=== PATIENT | female | born 1935 | race African-American/Black ===

== ENCOUNTER 2017-08-17 00:19 | Inpatient (IN) | payer MEDICARE ==
[~2017-08-17] VITALS: Ht 172.7 cm; Wt 78.9 kg
--- NOTE | ~2017-08-17 | OP ---
PATIENT NAME: EDDIE AVILA MEDICAL RECORD: [id number] :35 LOCATION:[id number] ADMISSION DATE:08/17/17 SURGEON: ADELINA GUZMAN MD DATE OF OPERATION: 08/18/2017 PREOPERATIVE DIAGNOSES: 1. Need for IV access. 2. Nausea and vomiting. 3. Gallstones. 4. Anemia of chronic disease. 5. Cardiac arrhythmia. 6. Bmqsc-ym-kgptcvz renal failure. POSTOPERATIVE DIAGNOSES: 1. Need for IV access. 2. Nausea and vomiting. 3. Gallstones. 4. Anemia of chronic disease. 5. Cardiac arrhythmia. 6. Jvhsc-oz-nsaztyo renal failure. PROCEDURE: Right subclavian vein triple-lumen central venous line placement. SURGEON: Adelina Guzman MD REPORT OF PROCEDURE: The patient's right chest was prepped and draped in sterile fashion. A 5 mL of 1% lidocaine was infused into the subcutaneous tissues. A needle was used to cannulate the right subclavian vein and a guidewire was advanced with ease. Over this wire, a dilator was placed followed by the triple lumen catheter. The catheter aspirated nonpulsatile dark blood and flushed easily in all 3 ports. This was sutured into place with 3-0 silk ties and dressed appropriately. COMPLICATIONS: None. CONDITION: Stable. ANESTHESIA: Local. BLOOD LOSS: Minimal. TRANSINT:[id number] Voice Confirmation ID: [id number] DOCUMENT ID: [id number] ADELINA GUZMAN MD at 1319 CC: [id number] DICTATION DATE: 08/18/17 1148 MANUFACTURERS AGENT: 08/18/17 1523 ADM IN [place] [id number] [place] [id number]
[2017-08-17 05:25] VITALS: BP 143/93
[2017-08-17 08:07] VITALS: BP 176/76
[2017-08-17 09:24] LABS: BASOPHILS 0.2 % (0-2); EOSINOPHILS 1.3 % (0-7); HEMATOCRIT 30.5 % (36.0-48.0); HEMOGLOBIN 9.3 g/dL (12-16); IMMATURE GRANULOCYTES 0.2 % (0-5); LYMPHOCYTES 26.1 % (15-50); MCH 27.5 pg (26.0-34.0); MCHC 30.5 g/dL (31.0-37.0); MCV 90.2 fL (80.0-100.0); MEAN PLATELET VOLUME 11.2 fL (7.4-10.4); MONOCYTES 8.8 % (2-11); NEUTROPHILS 63.4 % (40-80); PLATELET COUNT 159 10x3/uL (130-400); RBC 3.38 10x6/uL (4.00-5.40); RDW 15.7 % (11.5-14.5); WBC 6.1 10x3/uL (4.8-10.8)
[2017-08-17 09:30] LABS: ANION GAP 14.1 mmol/L (8-16); CALCIUM 9.1 mg/dL (8.5-10.1); CARBON DIOXIDE 22.1 mmol/L (21.0-32.0); CREATININE - SERUM 1.3 mg/dL (0.6-1.3); POTASSIUM - SERUM 3.2 mmol/L (3.5-5.1)
[2017-08-17 12:05] VITALS: BMI 26.4
[2017-08-17 12:15] VITALS: BP 187/90
[2017-08-17 14:15] VITALS: Ht 172.7 cm; Wt 78.9 kg
[2017-08-17 16:24] VITALS: BP 187/75
[2017-08-17 20:00] VITALS: BP 174/77
[2017-08-18] VITALS: BP 189/83
[2017-08-18 04:00] VITALS: BP 191/85
[2017-08-18 08:18] VITALS: BP 180/88
[2017-08-18 12:42] VITALS: BP 188/91
[2017-08-18 14:10] LABS: CREATININE - SERUM 1.4 mg/dL (0.6-1.3)
[2017-08-18 21:31] VITALS: BP 188/81
[2017-08-19 00:50] VITALS: BP 176/84
[2017-08-19 05:08] LABS: BASOPHILS 0.2 % (0-2); EOSINOPHILS 2.6 % (0-7); HEMATOCRIT 27.1 % (36.0-48.0); HEMOGLOBIN 8.2 g/dL (12-16); IMMATURE GRANULOCYTES 0.2 % (0-5); LYMPHOCYTES 31.7 % (15-50); MCH 27.2 pg (26.0-34.0); MCHC 30.3 g/dL (31.0-37.0); MCV 89.7 fL (80.0-100.0); MEAN PLATELET VOLUME 10.8 fL (7.4-10.4); MONOCYTES 11.5 % (2-11); NEUTROPHILS 53.8 % (40-80); PLATELET COUNT 139 10x3/uL (130-400); RBC 3.02 10x6/uL (4.00-5.40); RDW 15.5 % (11.5-14.5)
[2017-08-19 05:10] LABS: WBC 4.2 10x3/uL (4.8-10.8)
[2017-08-19 05:24] LABS: ANION GAP 10.5 mmol/L (8-16); CALCIUM 8.9 mg/dL (8.5-10.1); CARBON DIOXIDE 24.2 mmol/L (21.0-32.0); CREATININE - SERUM 1.3 mg/dL (0.6-1.3)
[2017-08-19 05:33] LABS: POTASSIUM - SERUM 3.7 mmol/L (3.5-5.1)
[2017-08-19 05:43] VITALS: BP 178/84
[2017-08-19 09:59] VITALS: BP 179/70
[2017-08-19 11:55] VITALS: BP 196/93
[2017-08-19 16:48] VITALS: BP 164/74
[2017-08-19 20:00] VITALS: BP 144/64
[2017-08-20 04:00] VITALS: BP 158/71
[2017-08-20 06:19] LABS: BASOPHILS 0.2 % (0-2); HEMATOCRIT 26.4 % (36.0-48.0); HEMOGLOBIN 8.3 g/dL (12-16); IMMATURE GRANULOCYTES 0.2 % (0-5); LYMPHOCYTES 36.2 % (15-50); MCHC 31.4 g/dL (31.0-37.0); MCV 89.2 fL (80.0-100.0); MEAN PLATELET VOLUME 10.8 fL (7.4-10.4); NEUTROPHILS 46.4 % (40-80); PLATELET COUNT 136 10x3/uL (130-400); RBC 2.96 10x6/uL (4.00-5.40); RDW 15.5 % (11.5-14.5); WBC 4.6 10x3/uL (4.8-10.8)
[2017-08-20 06:22] LABS: ANION GAP 10.6 mmol/L (8-16); CARBON DIOXIDE 24.5 mmol/L (21.0-32.0); CREATININE - SERUM 1.2 mg/dL (0.6-1.3); POTASSIUM - SERUM 4.1 mmol/L (3.5-5.1)
[2017-08-20 08:32] VITALS: BP 189/78
[2017-08-20 13:41] VITALS: BP 103/86; BP 126/47
[2017-08-20] MEDS ORDERED: NORCO 7.5/325 T1 TA1 PO (13:45)
[2017-08-20] MEDS ORDERED: NORVASC10 MG PO (13:45)
[2017-08-20] MEDS ORDERED: TOPROL XL100 MG PO (13:45)
[2017-08-20] MEDS ORDERED: ZOFRAN4 MG PO (13:46)
[2017-08-20] MEDS ORDERED: AMITIZA24 MCG PO (13:46)
[2017-08-20] MEDS ORDERED: GABAPENTIN100 MG PO (13:48)
[2017-08-20] MEDS ORDERED: SORBITOL4000 ML PO (13:48)
[2017-08-20] MEDS ORDERED: MECLIZINE HCL25 MG PO (13:49)
[2017-08-20 20:00] VITALS: BP 185/82
[2017-08-21] VITALS: BP 173/89
[2017-08-21 04:00] VITALS: BP 185/84
[2017-08-21 05:43] LABS: BASOPHILS 0.2 % (0-2); EOSINOPHILS 3.4 % (0-7); HEMATOCRIT 27.2 % (36.0-48.0); HEMOGLOBIN 8.4 g/dL (12-16); IMMATURE GRANULOCYTES 0.2 % (0-5); LYMPHOCYTES 41.3 % (15-50); MCH 27.4 pg (26.0-34.0); MCHC 30.9 g/dL (31.0-37.0); MCV 88.6 fL (80.0-100.0); MEAN PLATELET VOLUME 10.4 fL (7.4-10.4); MONOCYTES 10.7 % (2-11); NEUTROPHILS 44.2 % (40-80); RBC 3.07 10x6/uL (4.00-5.40); RDW 15.3 % (11.5-14.5); WBC 4.4 10x3/uL (4.8-10.8)
[2017-08-21 05:51] LABS: ANION GAP 10.7 mmol/L (8-16); CALCIUM 8.3 mg/dL (8.5-10.1); CARBON DIOXIDE 24.7 mmol/L (21.0-32.0); POTASSIUM - SERUM 4.4 mmol/L (3.5-5.1)
[2017-08-21 06:19] LABS: PLATELET COUNT 167 10x3/uL (130-400)
[2017-08-21 08:03] VITALS: BP 186/90
[2017-08-21 11:56] VITALS: BP 123/70
[2017-08-21 17:02] VITALS: BP 171/87
[2017-08-21 20:00] VITALS: BP 198/85
[2017-08-22] VITALS: BP 174/79
[2017-08-22 04:00] VITALS: BP 178/73
[2017-08-22 05:40] LABS: BASOPHILS 0.1 % (0-2); EOSINOPHILS 1.2 % (0-7); HEMATOCRIT 26.3 % (36.0-48.0); HEMOGLOBIN 8.2 g/dL (12-16); IMMATURE GRANULOCYTES 0.3 % (0-5); LYMPHOCYTES 19.7 % (15-50); MCH 27.6 pg (26.0-34.0); MCHC 31.2 g/dL (31.0-37.0); MCV 88.6 fL (80.0-100.0); MONOCYTES 8.7 % (2-11); PLATELET COUNT 157 10x3/uL (130-400); RBC 2.97 10x6/uL (4.00-5.40); RDW 15.1 % (11.5-14.5)
[2017-08-22 06:09] LABS: CALCIUM 8.5 mg/dL (8.5-10.1); CARBON DIOXIDE 23.4 mmol/L (21.0-32.0); CREATININE - SERUM 1.1 mg/dL (0.6-1.3); POTASSIUM - SERUM 4.4 mmol/L (3.5-5.1)
[2017-08-22 06:16] LABS: WBC 7.3 10x3/uL (4.8-10.8)
[2017-08-22 09:20] VITALS: BP 173/67
[2017-08-22 13:17] VITALS: BP 123/82
[2017-08-22 17:38] VITALS: BP 147/74
[2017-08-22 20:00] VITALS: BP 141/58
[2017-08-23] VITALS: BP 171/74
[2017-08-23 04:00] VITALS: BP 187/78
[2017-08-23 06:39] LABS: BASOPHILS 0.2 % (0-2); EOSINOPHILS 5.3 % (0-7); HEMATOCRIT 25.2 % (36.0-48.0); HEMOGLOBIN 7.8 g/dL (12-16); IMMATURE GRANULOCYTES 0.2 % (0-5); MCH 27.6 pg (26.0-34.0); MEAN PLATELET VOLUME 9.4 fL (7.4-10.4); MONOCYTES 10.7 % (2-11); NEUTROPHILS 47.6 % (40-80); PLATELET COUNT 133 10x3/uL (130-400); RBC 2.83 10x6/uL (4.00-5.40); RDW 15.3 % (11.5-14.5)
[2017-08-23 07:07] LABS: ANION GAP 12.9 mmol/L (8-16); CALCIUM 8.5 mg/dL (8.5-10.1); CARBON DIOXIDE 22.8 mmol/L (21.0-32.0); POTASSIUM - SERUM 4.7 mmol/L (3.5-5.1)
[2017-08-23 08:05] VITALS: BP 177/72
[2017-08-23 12:05] VITALS: BP 152/57
[2017-08-23 17:02] VITALS: BP 132/63
[2017-08-23 23:02] VITALS: BP 128/63
[2017-08-24 02:45] VITALS: BP 144/68
[2017-08-24 04:32] VITALS: BP 154/56
[2017-08-24 06:13] LABS: BASOPHILS 0.2 % (0-2); HEMATOCRIT 24.5 % (36.0-48.0); IMMATURE GRANULOCYTES 0.2 % (0-5); LYMPHOCYTES 31.5 % (15-50); MCH 27.3 pg (26.0-34.0); MCHC 30.6 g/dL (31.0-37.0); MCV 89.1 fL (80.0-100.0); MEAN PLATELET VOLUME 10.1 fL (7.4-10.4); MONOCYTES 9.8 % (2-11); NEUTROPHILS 53.3 % (40-80); PLATELET COUNT 151 10x3/uL (130-400); RBC 2.75 10x6/uL (4.00-5.40); RDW 15.3 % (11.5-14.5); WBC 4.8 10x3/uL (4.8-10.8)
[2017-08-24 06:21] LABS: HEMOGLOBIN 7.5 g/dL (12-16)
[2017-08-24 06:34] LABS: ANION GAP 12.1 mmol/L (8-16); BILIRUBIN - TOTAL 0.3 mg/dL (0.2-1.3); CALCIUM 8.9 mg/dL (8.5-10.1); CARBON DIOXIDE 23.5 mmol/L (21.0-32.0); CREATININE - SERUM 1.1 mg/dL (0.6-1.3); POTASSIUM - SERUM 4.6 mmol/L (3.5-5.1); PROTEIN - SERUM 5.6 g/dL (6.4-8.2)
[2017-08-24 08:20] VITALS: BP 145/58
[2017-08-24 12:27] VITALS: BP 135/65
[2017-08-24 15:18] VITALS: BP 153/72
[2017-08-24 22:58] VITALS: BP 169/84
[2017-08-25 01:21] VITALS: BP 141/61
[2017-08-25 05:44] VITALS: BP 164/84
[2017-08-25 07:22] LABS: BASOPHILS 0.2 % (0-2); EOSINOPHILS 3.9 % (0-7); HEMATOCRIT 28.3 % (36.0-48.0); HEMOGLOBIN 8.8 g/dL (12-16); IMMATURE GRANULOCYTES 0.3 % (0-5); LYMPHOCYTES 32.4 % (15-50); MCH 27.6 pg (26.0-34.0); MCHC 31.1 g/dL (31.0-37.0); MCV 88.7 fL (80.0-100.0); MEAN PLATELET VOLUME 9.7 fL (7.4-10.4); MONOCYTES 6.7 % (2-11); NEUTROPHILS 56.5 % (40-80); PLATELET COUNT 149 10x3/uL (130-400); RBC 3.19 10x6/uL (4.00-5.40)
[2017-08-25 07:42] LABS: ALBUMIN 2.1 g/dL (3.4-5.0); ANION GAP 9.9 mmol/L (8-16); BILIRUBIN - TOTAL 0.31 mg/dL (0.2-1.3); CALCIUM 9.5 mg/dL (8.5-10.1); CARBON DIOXIDE 26.5 mmol/L (21.0-32.0); CREATININE - SERUM 1.1 mg/dL (0.6-1.3); POTASSIUM - SERUM 4.4 mmol/L (3.5-5.1); PROTEIN - SERUM 5.8 g/dL (6.4-8.2)
[2017-08-25 12:07] VITALS: BP 129/52; BP 178/72
[2017-08-25 23:07] VITALS: BP 133/52
[2017-08-26 05:06] VITALS: BP 155/68
[2017-08-26 05:16] LABS: BASOPHILS 0.2 % (0-2); EOSINOPHILS 4.1 % (0-7); HEMATOCRIT 27.8 % (36.0-48.0); HEMOGLOBIN 8.6 g/dL (12-16); IMMATURE GRANULOCYTES 0.6 % (0-5); LYMPHOCYTES 33.9 % (15-50); MCH 27.7 pg (26.0-34.0); MCHC 30.9 g/dL (31.0-37.0); MCV 89.7 fL (80.0-100.0); MEAN PLATELET VOLUME 9.7 fL (7.4-10.4); MONOCYTES 5.4 % (2-11); NEUTROPHILS 55.8 % (40-80); PLATELET COUNT 151 10x3/uL (130-400); RDW 15.6 % (11.5-14.5); WBC 5.4 10x3/uL (4.8-10.8)
[2017-08-26 06:08] LABS: ANION GAP 10.9 mmol/L (8-16); BILIRUBIN - TOTAL 0.28 mg/dL (0.2-1.3); CALCIUM 9.4 mg/dL (8.5-10.1); CARBON DIOXIDE 27.6 mmol/L (21.0-32.0); CREATININE - SERUM 1.1 mg/dL (0.6-1.3); POTASSIUM - SERUM 4.5 mmol/L (3.5-5.1); PROTEIN - SERUM 5.8 g/dL (6.4-8.2)
[2017-08-26 08:11] VITALS: BP 132/54
[2017-08-26 12:21] VITALS: BP 124/52
[2017-08-26 20:38] VITALS: BP 108/42
[2017-08-27 04:30] VITALS: BP 157/93
[2017-08-27 04:33] LABS: BASOPHILS 0.4 % (0-2); EOSINOPHILS 3.7 % (0-7); HEMATOCRIT 26.5 % (36.0-48.0); HEMOGLOBIN 8.2 g/dL (12-16); IMMATURE GRANULOCYTES 0.6 % (0-5); LYMPHOCYTES 29.5 % (15-50); MCH 28.3 pg (26.0-34.0); MCHC 30.9 g/dL (31.0-37.0); MCV 91.4 fL (80.0-100.0); MEAN PLATELET VOLUME 10.1 fL (7.4-10.4); MONOCYTES 5.2 % (2-11); NEUTROPHILS 60.6 % (40-80); PLATELET COUNT 149 10x3/uL (130-400); RDW 15.3 % (11.5-14.5); WBC 5.2 10x3/uL (4.8-10.8)
[2017-08-27 04:50] LABS: ANION GAP 10.4 mmol/L (8-16); BILIRUBIN - TOTAL 0.2 mg/dL (0.2-1.3); CALCIUM 8.7 mg/dL (8.5-10.1); CARBON DIOXIDE 28.2 mmol/L (21.0-32.0); CREATININE - SERUM 1.1 mg/dL (0.6-1.3); POTASSIUM - SERUM 4.6 mmol/L (3.5-5.1); PROTEIN - SERUM 5.7 g/dL (6.4-8.2)
[2017-08-27 08:19] VITALS: BP 138/60
[2017-08-27 11:47] VITALS: BP 134/56
[2017-08-27] MEDS ORDERED: NEURONTIN 300300 MG PO (15:54)
[2017-08-27] MEDS ORDERED: ZEMPLAR1 MCG PO (15:54)
== END 2017-08-27 17:30 | disposition home health service (06) | DRG 73 ==
LOC: D.MS 00:19
PROVIDERS: Family Medicine; Internal Medicine Nephrology
PROC: 02HV33Z Insertion of Infusion Device into Superior Vena Cava, Percutaneous Approach (ICD-10-PCS; principal; 2017-08-18)
PROC: B5181ZA Fluoroscopy of Superior Vena Cava using Low Osmolar Contrast, Guidance (ICD-10-PCS; 2017-08-18)
DX: E11.43 Type 2 diabetes mellitus with diabetic autonomic (poly)neuropathy (principal); E43 Unspecified severe protein-calorie malnutrition; N17.9 Acute kidney failure, unspecified; K80.80 Other cholelithiasis without obstruction; D63.8 Anemia in other chronic diseases classified elsewhere; I49.9 Cardiac arrhythmia, unspecified; E11.22 Type 2 diabetes mellitus with diabetic chronic kidney disease; I12.9 Hypertensive chronic kidney disease with stage 1 through stage 4 chronic kidney disease, or unspecified chronic kidney disease; N18.3 Chronic kidney disease, stage 3 (moderate); K31.84 Gastroparesis; I25.5 Ischemic cardiomyopathy; K59.09 Other constipation; R13.10 Dysphagia, unspecified